=== PATIENT | female | born 1970 | race Caucasian/White ===

== ENCOUNTER 2024-06-06 15:34 | Emergency (ER) | payer MEDICAID, SELFPAY ==
[2024-06-06 15:39] VITALS: BP 134/63; PULSE 88; RESP 20; TEMP 36.6; O2SAT 95; BMI 38.9
--- NOTE | 2024-06-06 15:54 | ED_ITS ---
HPI - Back Pain/Injury <Yulia Cheatham PA-C - Last Filed: 06/06/24 17:23> General Chief Complaint: Back Pain/Injury Stated Complaint: Possible pinched nerve, whole back hurts Time Seen by Provider: 06/06/24 15:54 History of Present Illness HPI Narrative: Ms. David Is a pleasant 53-year-old female with a past medical history of DDD, spinal stenosis who presents to the emergency department for back pain x 1 week. 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 She thought the pain was improving and she went to bed last night feeling good however when she woke up this morning the pain was worse. She describes it primarily on the left mid and low back region however her whole back starting to hurt. No direct trauma to the back. No pain radiating down the legs, no numbness tingling or weakness. No bowel or bladder dysfunction, hematuria, dysuria, constipation, diarrhea, abdominal pain, fevers, chills, cough, shortness of breath. No IV drug use. No medications prior to arrival. Patient states in the past she received Robaxin and gabapentin for back pain which helped significantly. Related Data Previous Rx's Medication Instructions Recorded gabapentin 100 mg capsule 100 mg PO TID PRN nerve pain #20 06/06/24 caps lidocaine 5 % topical patch 1 patch topical DAILY #30 ea 06/06/24 (Lidoderm) methocarbamol 500 mg tablet 500 mg PO TID PRN muscle spasm #20 06/06/24 tabs naproxen 500 mg tablet 500 mg PO BID PRN pain #20 tabs 06/06/24 Allergies Allergy/AdvReac Type Severity Reaction Status Date / Time codeine Allergy Hives Verified 06/06/24 15:46 morphine AdvReac Vomiting Verified 06/06/24 15:46 Review of Systems <Yulia Cheatham PA-C - Last Filed: 06/06/24 17:23> Review of Systems ROS Unobtainable: All systems reviewed & are unremarkable except as noted in HPI and below Patient History <Yulia Cheatham PA-C - Last Filed: 06/06/24 17:23> Social History Smoking Status: Current every day smoker Smoking Status: Current every day smoker tobacco type: cigarettes Exam <Yulia Cheatham PA-C - Last Filed: 06/06/24 17:23> Narrative Exam Narrative: GENERAL: 53 year old patient appears stated age. Well-developed patient, in no acute distress. HEAD: Atraumatic. Normocephalic. NECK: Trachea midline. Cervical ROM intact. CARDIOVASCULAR: Regular rate and rhythm. RESPIRATORY: Nonlabored respirations. Speaking in clear, full sentences. Clear to auscultation. GASTROINTESTINAL: Abdomen soft, non-tender, nondistended. Normal BS. EXTREMITIES: No edema or joint tenderness. BACK: No reproducible tenderness to palpation. No midline spinal tenderness. No rashes. No CVA tenderness. Pain and left lumbar and thoracic paraspinal region with going from lying to sitting position. NEURO: AOx3. Clear speech. Moves all 4 extremities appropriately. Ambulates independently, carries her small dog. SKIN: No rash or erythema of visible areas Initial Vital Signs Initial Vital Signs: Vital Signs Temperature 97.8 F 06/06/24 15:39 Pulse Rate 88 06/06/24 15:39 Respiratory Rate 20 06/06/24 15:39 Blood Pressure 134/63 06/06/24 15:39 Pulse Oximetry 95 06/06/24 15:39 Oxygen Delivery Method Room Air 06/06/24 15:39 <Krystin Woods DO - Last Filed: 06/10/24 03:28> Initial Vital Signs Initial Vital Signs: Vital Signs Temperature 97.8 F 06/06/24 15:39 Pulse Rate 88 06/06/24 15:39 Respiratory Rate 20 06/06/24 15:39 Blood Pressure 134/63 06/06/24 15:39 Pulse Oximetry 95 06/06/24 15:39 Oxygen Delivery Method Room Air 06/06/24 15:39 Course <Yulia Cheatham PA-C - Last Filed: 06/06/24 17:23> Orders Ordered: Discontinued Medications Acetaminophen (Acetaminophen 325 Mg Tablet) 975 mg PO NOW ONE Stop: 06/06/24 16:09 Last Admin: 06/06/24 16:17 Dose: 975 mg Documented By: SPF Ketorolac Tromethamine (Ketorolac 30 Mg/Ml Vial) 30 mg IM NOW ONE Stop: 06/06/24 16:09 Last Admin: 06/06/24 16:18 Dose: 30 mg Documented By: SPF Lidocaine (Lidocaine 5% Patch) 1 each TOP NOW ONE Stop: 06/06/24 16:09 Last Admin: 06/06/24 16:17 Dose: 1 each Documented By: SPF Vital Signs Vital signs: Vital Signs - 8 hr 06/06/24 15:39 Temperature 97.8 F Pulse Rate 88 Respiratory Rate 20 Blood Pressure 134/63 Pulse Oximetry 95 Oxygen Delivery Method Room Air <Krystin Woods DO - Last Filed: 06/10/24 03:28> Orders Ordered: Discontinued Medications Acetaminophen (Acetaminophen 325 Mg Tablet) 975 mg PO NOW ONE Stop: 06/06/24 16:09 Last Admin: 06/06/24 16:17 Dose: 975 mg Documented By: SPF Ketorolac Tromethamine (Ketorolac 30 Mg/Ml Vial) 30 mg IM NOW ONE Stop: 06/06/24 16:09 Last Admin: 06/06/24 16:18 Dose: 30 mg Documented By: SPF Lidocaine (Lidocaine 5% Patch) 1 each TOP NOW ONE Stop: 06/06/24 16:09 Last Admin: 06/06/24 16:17 Dose: 1 each Documented By: SPF Vital Signs Vital signs: Vital Signs - 8 hr 06/06/24 15:39 Temperature 97.8 F Pulse Rate 88 Respiratory Rate 20 Blood Pressure 134/63 Pulse Oximetry 95 Oxygen Delivery Method Room Air MDM - Back Pain/Injury <Yulia Cheatham PA-C - Last Filed: 06/06/24 17:23> Medical Records Medical records narrative: None for review Lab Data Labs: Lab Results 06/06/24 Range/Units 16:26 Urine Color Yellow Urine Appearance Clear Urine pH 5.5 (4.5-8.0) Ur Specific [place] >=1.030 H (1.000-1.035) Urine Protein Trace H (Negative) Urine Glucose (UA) Negative (Negative) g/dL Urine Ketones Trace H (NEGATIVE) Urine Occult Blood 1+ H (Negative) Urine Nitrate Negative (Negative) Urine Bilirubin Negative (NEGATIVE) Ur Bilirubin Confirm Negative (Negative) Urine Urobilinogen 0.2 (0.2) E.U./dL Ur Leukocyte Esterase Negative (NEGATIVE) Urine RBC 1-5/hpf (0-5/HPF) Urine WBC 0-1/hpf (0-5/HPF) Ur Squamous Epith Cells 5-10 /hpf H (0-5/HPF) Urine Bacteria Occasional (0-1) (None) Ur Culture Indicated? Cult not indicated Vol Urine Centrifuged 10ml (spun) Urine Dip Bedside Urine Glucose Negative Bedside Urine Bilirubin + 1 Bedside Urine Ketone +/- 5 Urine Specific [place] 1.030 Bedside Urine Occult Blood + Bedside Urine pH 6.0 Bedside Urine Protein +/- 15 Bedside Urine Urobilinogen - Negative Bedside Urine Nitrite - Negative Bedside Urine Leukocytes - Negative Esterase MDM Narrative Medical decision making narrative: 53-year-old female with a past medical history of DDD, spinal stenosis who presents to the emergency department for back pain x 1 week. Differential diagnosis includes but is not limited to lumbar strain, thoracic strain, spinal stenosis, degenerative disc disease, herniated disc, UTI, pyelonephritis, nephrolithiasis, etc. On exam the patient is in no acute distress, nontoxic appearing, vital signs within normal limits. She is having nonreproducible primarily left-sided thoracic and lumbar back pain, worse with movement but nontender, no rashes, lower extremities neurovascularly intact, she is ambulatory, no bowel or bladder dysfunction, no fever, no IV drug use. We will check point of care UA, treat with Toradol acetaminophen Lidoderm. Patient is requesting Robaxin and gabapentin for home which I am agreeable to however she does need to drive herself home today. Patient feeling much better after ED treatment. She is requesting prescription of the lidocaine patches which I sent to pharmacy. UA reveals signs of contamination, no infection or gross blood. Suspect back strain from repetitive lifting at work, patient was prescribed naproxen, gabapentin, Robaxin and lidocaine patches. Discussed risks of gabapentin and muscle relaxers. Also recommended Tylenol, heat therapy, gentle stretching. Advised prompt follow up with the PCP. We discussed strict ED return precautions. Patient verbalized understanding all information is agreeable to this plan. She is feeling better, ambulatory and stable for discharge home. <Krystin Woods, DO - Last Filed: 06/10/24 03:28> Lab Data Labs: Lab Results 06/06/24 Range/Units 16:26 Urine Color Yellow Urine Appearance Clear Urine pH 5.5 (4.5-8.0) Ur Specific [place] >=1.030 H (1.000-1.035) Urine Protein Trace H (Negative) Urine Glucose (UA) Negative (Negative) g/dL Urine Ketones Trace H (NEGATIVE) Urine Occult Blood 1+ H (Negative) Urine Nitrate Negative (Negative) Urine Bilirubin Negative (NEGATIVE) Ur Bilirubin Confirm Negative (Negative) Urine Urobilinogen 0.2 (0.2) E.U./dL Ur Leukocyte Esterase Negative (NEGATIVE) Urine RBC 1-5/hpf (0-5/HPF) Urine WBC 0-1/hpf (0-5/HPF) Ur Squamous Epith Cells 5-10 /hpf H (0-5/HPF) Urine Bacteria Occasional (0-1) (None) Ur Culture Indicated? Cult not indicated Vol Urine Centrifuged 10ml (spun) Urine Dip Bedside Urine Glucose Negative Bedside Urine Bilirubin + 1 Bedside Urine Ketone +/- 5 Urine Specific [place] 1.030 Bedside Urine Occult Blood + Bedside Urine pH 6.0 Bedside Urine Protein +/- 15 Bedside Urine Urobilinogen - Negative Bedside Urine Nitrite - Negative Bedside Urine Leukocytes - Negative Esterase Discharge Plan Departure Patient Disposition: Home Clinical Impression: Repetitive strain injury of mid back Qualifiers: Encounter type: initial encounter Qualified Code(s): S29.012A - Strain of muscle and tendon of back wall of thorax, initial encounter Instructions: DI for Back Spasm Activity Restrictions/Additional Instructions: Thank you for coming to the emergency department. Today you were evaluated for back pain. I suspect her pain is likely related to muscle strain and possibly spasms as well. You have been prescribed gabapentin which is pain medication for nerve pain that you can take up to 3 times a day if needed. You have also been prescribed methocarbamol / Robaxin which is a muscle relaxer. You may also take this up to 3 times a day. Please be aware that these medications may make you drowsy / sleepy and you can not take them if working, driving or operating heavy machinery. Please use the prescribed naproxen as needed for pain in addition to acetaminophen/ Tylenol. Please rest, perform gentle stretching and avoid heavy lifting. Follow up with your primary care doctor for further management. Please return to the emergency department if develop any new or worsening symptoms, difficulty going to the bathroom, blood in your urine, fevers, chest pain, or other concerns. Please follow up with your primary care doctor within the next 2-3 days for ER follow-up. (If you do not have a PCP you can call [phone]. to schedule an appointment with an [facility] Primary Care Provider) IF YOU DEVELOP ANY NEW OR WORSENING SYMPTOMS, RETURN TO THE ER! Please read the attached instructions, they highlight more specific treatments and interventions for you at home. Thank you for letting me participate in your care, Yulia Cheatham PA-C Prescriptions: New gabapentin 100 mg capsule 100 mg PO TID PRN (Reason: nerve pain) Qty: 20 0RF methocarbamol 500 mg tablet 500 mg PO TID PRN (Reason: muscle spasm) Qty: 20 0RF naproxen 500 mg tablet 500 mg PO BID PRN (Reason: pain) Qty: 20 0RF lidocaine [Lidoderm] 5 % adhesive patch,medicated 1 patch topical DAILY Qty: 30 0RF Rx Instructions: leave on most painful area for up to 12 hrs Stand Alone Forms: Patient Portal/API/Survey ED Sign-out <Krystin Woods DO - Last Filed: 06/10/24 03:28> Cosign ED Attending Martínature Attestation: I was immediately available in the department for consultation.
[2024-06-06] MEDS: LIDOCAINE 5% PATCH 1 EACH TOP (16:17)
[2024-06-06] MEDS: ACETAMINOPHEN 325 MG TABLET 975 MG PO (16:17)
[2024-06-06] MEDS: KETOROLAC 30 MG/ML VIAL IM (16:18)
[2024-06-06 16:54] LABS: Appearance Urine UA CLEAR; Bilirubin Urine UA NEGATIVE (NEGATIVE); Glucose Urine UA NEGATIVE (Negative); Ketones Urine UA TRACE (NEGATIVE); Leukocyte Esterase Urine UA NEGATIVE (NEGATIVE); Nitrite Urine UA NEGATIVE (Negative); Occult Blood Urine UA 1+ (Negative); Protein Urine UA TRACE (Negative); Specific Gravity Urine UA >=1.030 (1.000-1.035); Urobilinogen Urine UA 0.2 E.U./dL (0.2)
[2024-06-06 16:57] LABS: pH Urine UA 5.5 (4.5-8.0)
[2024-06-06 17:02] LABS: Color Urine UA YELLOW
[2024-06-06 17:03] LABS: Bacteria Urine Occasional (0-1); Culture Indicated Urine Cult Not Indicated; Ictotest Urine Negative (Negative); RBC Urine 1-5/HPF (0-5/HPF); Squamous Epithelial Cell Urine 5-10 /HPF (0-5/HPF); Urine Volume 10mL (spun); WBC Urine 0-1/HPF (0-5/HPF)
[2024-06-06 17:51] VITALS: BP 140/74; PULSE 92; RESP 16; O2SAT 96
== END 2024-06-06 17:52 | disposition home or self-care (01) ==
PROVIDERS: Emergency Provider Physician Assistant
DX: S29.012A Strain of muscle and tendon of back wall of thorax, initial encounter (principal); X50.0XXA Overexertion from strenuous movement or load, initial encounter
CPT/HCPCS: 81001; 81003; 96372; 99283; J1885